=== PATIENT | female | born 1990 | race African-American/Black ===

== ENCOUNTER 2019-02-07 00:36 | Inpatient (IN) | payer MEDICAID ==
[2019-02-07] MEDS ORDERED: MISOPROSTOL 0.2 MG TABLET ONE (01:10)
[2019-02-07] MEDS ORDERED: OXYTOCIN 10 UNIT/ML VIAL ONE ×2 (01:10→11:52)
[2019-02-07] MEDS ORDERED: LIDOCAINE 1% INJ-PF (10 MG/ML) 30 ML SDV ONE (01:10)
[2019-02-07] MEDS ORDERED: OXYTOCIN/NORMAL SALINE 0 UNIT/0 ML RTUINJ ONE (01:11)
[2019-02-07 01:15] LABS: APPEARANCE,URINE CLOUDY; BILIRUBIN,URINE NEGATIVE (NEGATIVE); COLOR,URINE YELLOW; GLUCOSE, URINE NEGATIVE (NEGATIVE); KETONES,URINE NEGATIVE (NEGATIVE); LEUKOCYTE ESTERASE,URINE MODERATE (NEGATIVE); NITRITE,URINE NEGATIVE (NEGATIVE); PROTEIN,URINE 100 mg/dL (NEGATIVE); URINE SPECIFIC GRAVITY 1.016; UROBILINOGEN,URINE NEGATIVE mg/dL (<2.0)
[2019-02-07] MEDS ORDERED: RINGERS SOLUTION,LACTATED 1,000 ML IV ONE (02:00)
[2019-02-07 02:05] LABS: ABSOLUTE EOSINOPHILS # (AUTO) 0.3 10^3/uL (0.0-0.6); ABSOLUTE LYMPHOCYTES (AUTO) 3.4 10^3/uL (0.5-4.7); ABSOLUTE MONOCYTES (AUTO) 0.6 10^3/uL (0.1-1.4); ABSOLUTE NEUT (AUTO) 7.2 10^3/uL (1.7-8.2); BASOPHILS % (AUTO) 0.3 % (0-2); EOSINOPHILS % (AUTO) 2.2 % (0-6); HEMATOCRIT 34.4 % (36.0-47.0); HEMOGLOBIN 11.4 g/dL (12.0-15.5); LYMPHOCYTES % (AUTO) 29.3 % (13-45); MEAN CORPUSCULAR HEMOGLOBIN 28.9 pg (27.0-33.4); MEAN CORPUSCULAR HGB CONC 33.1 g/dL (32.0-36.0); MEAN CORPUSCULAR VOLUME 87 fl (80-97); MONOCYTES % (AUTO) 5.6 % (3-13); PLATELET COUNT 213 10^3/uL (150-450); RED BLOOD COUNT 3.94 10^6/uL (3.72-5.28); RED CELL DISTRIBUTION WIDTH 13.8 % (11.5-14.0); SEGMENTED NEUTROPHILS % (AUTO) 62.6 % (42-78); TOTAL CELLS COUNTED % (AUTO) 100 %; WHITE BLOOD COUNT 11.4 10^3/uL (4.0-10.5)
[2019-02-07] MEDS ORDERED: OXYTOCIN/NORMAL SALINE 20 UNIT/1,000 ML RTUINJ IV PRN ×2 (02:18→12:36)
--- NOTE | 2019-02-07 06:14 | Admission Physical ---
Datetime Report Generated by CPN: 02/07/2019 06:14 CURRENT ADMISSION Chief Complaint: Uterine Contractions; Suspected Ruptured Membranes Indication for Induction: PROM Admit Impression : Term, Intrauterine ; No Active Labor; Ruptured Membranes; Induction of Labor Admit Plan: Admit to Unit; Initiate Labor Induction Protocol ALLERGIES Medication Allergies: Yes Medication Allergies: Penicillins/SV/Anaphylaxis (08/09/2016) Latex: No Latex Allergies OBSTETRICAL HISTORY EDC: 02/14/2019 00:00 : 3 Para: 2 Term: 2 : 0 SAB: 0 IAB: 0 Livin Gestational Diabetes: No Rh Sensitization: No Incompetent Cervix: No RAY: No Infertility: No ART Treatment: No IUGR: No Hx Previous C/S: No Macrosomia: No Hx Loss/Stillborn: No PIH: No Hx : No Placenta Previa/Abruption: No Depression/PP Depression: No PTL/PROM: No Post Hemorrhage: No Current Procedures: Ultrasound; NST Obstetrical History Comments: G1- 2010 Full term, Girl, [facility] G2- 2015- Full term, Boy, [facility] SEE RECORDS Alcohol: No Marijuana : No Cocaine: No Other Illicit Drugs: No Cigarettes: Smoker, Current Status Unknown. 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 Heart Disease: No Hosp/Surgery: Yes Autoimmune Disorder: No Anesthetic Complications: No Kidney Disease: No Abnormal Pap Smear: No Neuro/Epilepsy: No Psychiatric Disorders: No Other Medical Diseases: No Hepatitis/Liver Disease: No Significant Family History: No Varicosities/Phlebitis: No Trauma/Violence : No Thyroid Dysfunction: No Medical History Comments: x2, chronic history of MRSA INFECTIOUS HISTORY Gonorrhea: No Genital Herpes: No Chlamydia: No Syphilis: No Hepatitis: No HIV/AIDS Exposure: No Rash or Viral Illness: No HPV: No PHYSICAL EXAM General: Normal HEENT: Normal Neurologic: Normal Thyroid: Deferred Heart: Normal Lungs: Normal Breast: Deferred Back: Normal Abdomen: Normal Genitourinary Exam: Normal Extremities: Normal DTRs: Normal Pelvic Type: Adequate Vital Signs: Reviewed VAGINAL EXAM Dilatation: 1 Effacement: 50 Station: -2 Contraction Comments: irreg MEMBRANES Membranes: Ruptured Amniotic Fluid Color: Clear FETUS A EGA: 39.0 Monitoring: External US FHR- Baseline: 125 Variability: Moderate 6-25bpm Accelerations: 15X15 Decelerations: None FHR Category: Category I Presentation: Vertex Admit Comment: 28yo at 39+0ega presents with SROM at 1215 with clear fluid. She was late to care at 20wks. Rh negative. H/o MRSA - swab done on admission. She reports that she desires BTL for contraception pp. GBS negative. Will admit to labor and delivery. Begin pitocin for IOL due to PROM. pelvis proven to 8#1oz. PLANS FOR LABOR AND DELIVERY Labor and Delivery: None Pain Management: Epidural Feeding Preference: Formula Benefit of Breast Feed Discussed: Yes Circumcision: Yes INFORMED CONSENT Informed Consent Obtained: Vaginal Delivery; Induction of Labor; Risks, Benefits and Alternatives Discussed Signature: with User ID: [email or web address]
[2019-02-07 07:39] LABS: URINE AMPHETAMINES SCREEN NEGATIVE; URINE BARBITURATES SCREEN NEGATIVE; URINE BENZODIAZEPINES SCREEN NEGATIVE; URINE COCAINE SCREEN NEGATIVE; URINE MARIJUANA (THC) SCREEN NEGATIVE; URINE METHADONE SCREEN NEGATIVE; URINE PHENCYCLIDINE SCREEN NEGATIVE
[2019-02-07] MEDS ORDERED: CITRIC ACID/SODIUM CITRATE ORAL SOLN 15 ML UDCUP ONE (10:34)
[2019-02-07] MEDS: RINGERS SOLUTION,LACTATED 1,000 ML IV PRN ×2 (10:57→15:21)
[2019-02-07] MEDS ORDERED: CEFAZOLIN 2 GM/D5W RTU 2 GM/50 ML RTUPB IV ONE (11:11)
[2019-02-07] MEDS ORDERED: EPHEDRINE SULFATE INJ 50 MG/1 ML AMPULE ONE (11:52)
[2019-02-07] MEDS ORDERED: FENTANYL CITRATE INJ/PF 100 MCG/2 ML AMPUL ONE (11:52)
[2019-02-07] MEDS ORDERED: MIDAZOLAM 2 MG/2 ML INJ ONE (11:52)
[2019-02-07] MEDS ORDERED: MEPERIDINE HCL/PF INJ 25 MG/1 ML DISP.SYRIN IV PRN (12:32)
[2019-02-07] MEDS ORDERED: PROMETHAZINE HCL INJ 25 MG/1 ML VIAL IV PRN ×3 (12:32→12:36)
[2019-02-07] MEDS ORDERED: DIPHENHYDRAMINE HCL 50 MG/ML VIAL IV PRN (12:32)
[2019-02-07] MEDS ORDERED: FENTANYL CITRATE INJ/PF 100 MCG/2 ML AMPUL IV PRN ×3 (12:32)
[2019-02-07] MEDS ORDERED: OXYCODONE-ACETAMINOPHEN 5-325 MG TABLET PO PRN (12:36)
[2019-02-07] MEDS ORDERED: MEASLES,MUMPS&RUBELLA VACC/PF 0.5 ML VIAL SUBCUT PRN (12:36)
[2019-02-07] MEDS ORDERED: ACETAMINOPHEN 325 MG TABLET PO PRN (12:36)
[2019-02-07] MEDS ORDERED: MORPHINE SULFATE 10 MG/ML INJ IM PRN (12:36)
[2019-02-07] MEDS ORDERED: SIMETHICONE 80 MG TAB.CHEW PO PRN (12:36)
[2019-02-07] MEDS ORDERED: DIPH/PERTUSS(ACELL)/TETANUS VAC/PF 0.5 ML SYR (>=10YO) IM PRN (12:36)
[2019-02-07] MEDS ORDERED: ACETAMINOPHEN 1,000 MG/100 ML RTUPB IV PRN (12:36)
--- NOTE | 2019-02-07 13:23 | OPERATIVE REPORT E ---
Operative Report NAME: BALJIT WHITLEY : 1990 AGE: 28Y DATE OF SURGERY: 02/07/2019 ROOM: LR200 PREOPERATIVE DIAGNOSIS: Intrauterine at 39 weeks, rupture of membranes. Prior history of *------* and desire for sterilization. POSTOPERATIVE DIAGNOSIS: Intrauterine at 39 weeks, rupture of membranes. Prior history of *------* and desire for sterilization. OPERATION: Primary low transverse C section, delivery of a viable male, of 9 and 9, weighing 8 pounds. SURGEON: Hattie BRAVO M.D. ESTIMATED BLOOD LOSS: Less than 800 mL. TISSUE REMOVED OR ALTERED: Placenta PROCEDURE: The patient was placed in the supine position, rolled on the right side, prepped and draped in sterile fashion. Pfannenstiel was made. The incision was extended through the subcutaneous tissue to fascia. Fascia sharply divided. Rectus muscle was sharply divided. Parietal peritoneum was entered with sharp and blunt dissection. The uterus was nicked in the midline, extended bilaterally. The infant was then delivered through the uterine abdominal incision. Nose and mouth suctioned with bulb syringe. Cord was clamped. The infant was passed from the table. Placenta was manually extracted. Uterus closed in 2 layers of running 0-Vicryl first a running stitch and a second Lembert stitch imbricating the first layer. A small amount of bleeding was noted in the midportion was controlled with a [id number] suture of 0 Vicryl. Hemostasis was noted. The right fallopian tube was then banded in the mid portion, creating a good knuckle of tissue. This was repeated on the left. Tube was identified prior to and after banding. The fascia was then closed with 0-Vicryl. Subcutaneous was closed with interrupted 0-Vicryl and the skin was closed with subcutaneous absorbable ricky. She tolerated well and was taken to recovery in good condition. Urine remained clear throughout the procedure. Infant went to nursery. DICTATING PHYSICIAN: Hattie BRAVO M.D. [id number] PHY#: [id number] ID: [id number] JOB#: [id number] ACCT: [id number] cc:Hattie BRAVO M.D. >
[2019-02-07] MEDS ORDERED: MORPHINE SULFATE 10 MG/ML INJ ONE (13:27)
[2019-02-07] MEDS: MORPHINE SULFATE 10 MG/ML INJ IV PRN ×2 (13:31→14:03)
[2019-02-07] MEDS: CEFAZOLIN 2 GM/D5W RTU 2 GM/50 ML RTUPB IV SCH ×3 (15:09→23:43)
[2019-02-07] MEDS: KETOROLAC TROMETHAMINE INJ/PF 30 MG/1 ML SDV IV SCH ×2 (15:15→23:43)
[2019-02-07] MEDS: OXYCODONE-ACETAMINOPHEN 5-325 MG TABLET PO PRN (15:17)
[2019-02-07] MEDS ORDERED: METOCLOPRAMIDE HCL INJ/PF 10 MG/2 ML SDV ONE (16:11)
[2019-02-07] MEDS ORDERED: DEXAMETHASONE SOD PHOSPHATE INJ 4 MG/1 ML VIAL ONE (16:11)
[2019-02-07] MEDS ORDERED: KETOROLAC TROMETHAMINE 60 MG/2 ML SDV ONE (16:11)
[2019-02-07] MEDS ORDERED: ONDANSETRON HCL INJ/PF 4 MG/2 ML SDV ONE (16:11)
--- NOTE | 2019-02-07 16:11 | Delivery Summary ---
Del Sum A-C Datetime Report Generated by CPN: 02/07/2019 16:11 DELIVERY PERSONNEL DELIVERY PERSONNEL: [id number] Delivery Doctor:: Shaun Banerjee MD Anesthesiologist:: Mattie Garcia MD Labor and Delivery Nurse:: Anushka Sosa RN Information Security Director:: Anushka Sosa RN Nursery Nurse:: Rachel Whiteside Char Filter Tank Tender/MAGAZINE GRINDER LOADER: ST Lisette Char Filter Tank Tender/MAGAZINE GRINDER LOADER: Gabrielle Dunbar, SAMPLE DISTRIBUTOR Additional Personnel: : Cheyenne Marks RN MATERNAL INFORMATION Delivery Anesthesia: Spinal Medications After Delivery: Pitocin Bolus-Please Comment; Pitocin Drip 20 Units/1000ml NSS Maternal Complications: Premature Rupture of Membranes; Other Other Maternal Complications: prior shoulder dystocia LABOR SUMMARY EDC: 02/14/2019 00:00 LABOR INFORMATION Reason for Induction: Not Applicable Group B Beta Strep: negative MEMBRANES Membranes Rupture Method: Spontaneous VAGINAL DELIVERY Episiotomy: None Laceration #1: None Laceration Extension #1: N/A CSECTION DELIVERY Primary Indication: Other Other Primary Indication: Breech CSection Incision: Lower Uterine Transverse Sterilization Procedure: Ring and Clip BABY A INFORMATION Delivery Date/Time: 02/07/2019 12:14 Method of Delivery: Born in Route : No : N/A SCORES BABY A Heart Rate 1 min: >100 bpm Resp Effort 1 min: Good Cry Reflex Irritability 1 min: Cough or Sneeze or Pulls Away Muscle Tone 1 min: Active Motion Color 1 min: Body [place], Extremities Blue Resuscitation Effort 1 min: Tactile Stimulation SCORE 1 MIN: 9 Heart Rate 5 min: >100 bpm Resp Effort 5 min: Good Cry Reflex Irritability 5 min: Cough or Sneeze or Pulls Away Muscle Tone 5 min: Active Motion Color 5 min: Body [place], Extremities Blue SCORE 5 MIN: 9 WEIGHT/LENGTH BABY A Birthweight (gm): 3630 Infant Weight (lb): 8 Infant Weight (oz): 0 Length (in): 19.50 Infant Length (cm): 49.53 ASSESSMENT BABY A Complications: None Physical Findings at Delivery: Within Normal Limits Transferred To: [facility] SIGNATURES Signature: with User ID: [email or web address]
[2019-02-07] MEDS: DOCUSATE SODIUM 100 MG CAPSULE PO SCH (18:44)
[2019-02-08] MEDS: KETOROLAC TROMETHAMINE INJ/PF 30 MG/1 ML SDV IV SCH (06:00)
[2019-02-08] MEDS: CEFAZOLIN 2 GM/D5W RTU 2 GM/50 ML RTUPB IV SCH ×4 (06:00→23:40)
[2019-02-08 07:09] LABS: HEMATOCRIT 29.3 % (36.0-47.0); HEMOGLOBIN 9.7 g/dL (12.0-15.5); MEAN CORPUSCULAR HEMOGLOBIN 29.3 pg (27.0-33.4); MEAN CORPUSCULAR VOLUME 89 fl (80-97); PLATELET COUNT 203 10^3/uL (150-450); RED CELL DISTRIBUTION WIDTH 13.9 % (11.5-14.0); WHITE BLOOD COUNT 14.6 10^3/uL (4.0-10.5)
[2019-02-08] MEDS: OXYCODONE-ACETAMINOPHEN 5-325 MG TABLET PO PRN ×3 (07:47→22:33)
--- NOTE | 2019-02-08 09:16 | PDOC PROGRESS REPORT ---
Subjective-OB Progress Note for:: 02/08/19 - POD #1, doing well, no complaints, Hx of MRSA, swab pending, pt plans to bottlefeed, RH negative. Physical Exam (OB) Vital Signs: Temp Pulse Resp BP Pulse Ox 98.5 F 69 18 120/63 100 02/08/19 04:18 02/08/19 04:18 02/08/19 04:18 02/08/19 04:18 02/08/19 04:18 Intake & Output 02/07/19 02/08/19 02/09/19 06:59 06:59 06:59 Intake Total 2250 50 Output Total 1850 Balance 400 50 Weight 129.6 kg - General General Appearance: Appears well, Alert In distress: None - PIH/Pre-Eclampsia DTR's: 1 + Clonus: Negative Headache: Absent Epigastric Pain: No Visual Changes: No - Dressing Removed: Yes Incision: Dressing Closure Type: Surgical Glue - Lochia Lochia Amount: Small 10-25 ml Lochia Color: Serosa/Brown - Abdomen Description: Soft Hernia Present: No Fundal Description: Firm, Midline Fundal Height: u/u - u/2 - Respiratory Respiratory Status: No respiratory distress Breath sounds: Clear - Cardiovascular Rhythm: Regular Heart Sounds: Normal auscultation - Abdominal Inspection: Normal Distension: No distension Tenderness: Nontender - Genitourinary Genitourinary Note: santizo cath in place - Extremities Upper extremity: Normal inspection Lower extremities: Normal inspection - Neurological Cognition: Normal Orientation: AAOx4 - Psychological Associated symptoms: Normal affect, Normal mood - Skin Skin Temperature: Warm Skin Moisture: Dry Objective-Diagnostic Laboratory: 02/08/19 06:34 02/08/19 02/08/19 06:34 06:34 WBC 14.6 H RBC 3.30 L Hgb 9.7 L Hct 29.3 L MCV 89 MCH 29.3 MCHC 33.0 RDW 13.9 Plt Count 203 Blood Type AB NEGATIVE Assessment and Plan(PN) - Assessment and Plan (1) S/P primary low transverse Is this a current diagnosis for this admission?: Yes (2) Obesity affecting Qualifiers: Trimester: third trimester Qualified Code(s): O99.213 - Obesity complicating , third trimester Is this a current diagnosis for this admission?: Yes (3) Premature rupture of membranes Qualifiers: PROM onset of labor timing: onset of labor within 24 hours of rupture Is this a current diagnosis for this admission?: Yes (4) Tobacco abuse disorder Is this a current diagnosis for this admission?: Yes - Time Spent with Patient Time with patient: Less than 15 minutes Medications reviewed and adjusted accordingly: Yes - Disposition Anticipated Discharge: Home Within: within 48 hours
[2019-02-08] MEDS: DOCUSATE SODIUM 100 MG CAPSULE PO SCH ×2 (10:18→17:22)
[2019-02-08] MEDS: PRENATAL VITAMIN W DHA CAPSULE PO SCH (10:18)
[2019-02-08] MEDS: FERROUS SULFATE 325 MG TABLET PO SCH (10:18)
[2019-02-08] MEDS: IBUPROFEN 800 MG TABLET PO SCH ×2 (17:21→23:41)
[2019-02-09] MEDS: CEFAZOLIN 2 GM/D5W RTU 2 GM/50 ML RTUPB IV SCH (06:34)
[2019-02-09] MEDS: IBUPROFEN 800 MG TABLET PO SCH ×2 (06:34→14:01)
[2019-02-09] MEDS: DOCUSATE SODIUM 100 MG CAPSULE PO SCH (09:04)
[2019-02-09] MEDS: OXYCODONE-ACETAMINOPHEN 5-325 MG TABLET PO PRN (09:04)
[2019-02-09] MEDS: FERROUS SULFATE 325 MG TABLET PO SCH (09:04)
[2019-02-09] MEDS: PRENATAL VITAMIN W DHA CAPSULE PO SCH (09:04)
--- NOTE | 2019-02-09 10:02 | PDOC DISCHARGE SUMMARY ---
Final Diagnosis Discharge Date: 02/09/19 - POD #2, doing well, desires to go home today, AB negative, bottlefeeding - Final Diagnosis (1) S/P primary low transverse Is this a current diagnosis for this admission?: Yes (2) Obesity affecting Is this a current diagnosis for this admission?: Yes (3) Premature rupture of membranes Is this a current diagnosis for this admission?: Yes (4) Tobacco abuse disorder Is this a current diagnosis for this admission?: Yes Discharge Data - Discharge Medication Prescriptions: Ferrous Sulfate [Feosol 325 mg Tablet] 325 mg PO DAILY #30 tablet Ibuprofen [Motrin 800 mg Tablet] 800 mg PO Q6 #60 tablet Oxycodone HCl/Acetaminophen [Percocet 5-325 mg Tablet] 1 tab PO Q4HP PRN #30 tablet PRN Reason: Pain Scale Of 3 Home Medications: No122/Iron/Folic Acid [ Multi Tablet] 1 tab PO DAILY 08/09/16 Ferrous Sulfate [Feosol 325 mg Tablet] 325 mg PO DAILY #30 tablet 02/09/19 Ibuprofen [Motrin 800 mg Tablet] 800 mg PO Q6 #60 tablet 02/09/19 Oxycodone HCl/Acetaminophen [Percocet 5-325 mg Tablet] 1 tab PO Q4HP PRN #30 tablet 02/09/19 Reason(s) for Admission: Ceasarean Section-Repeat Procedures: Ultrasound Intrapartum Procedure(s): : Low Cervical, Transverse - Diagnosis Test Laboratory: Temp Pulse Resp BP Pulse Ox 98.6 F 84 18 116/62 98 02/09/19 07:21 02/09/19 07:21 02/09/19 07:21 02/09/19 07:21 02/09/19 08:50 02/07/19 02/07/19 02/07/19 00:45 01:50 07:00 RBC 3.94 Hgb 11.4 L Hct 34.4 L Urine Opiates Screen Cancelled NEGATIVE 02/08/19 06:34 RBC 3.30 L Hgb 9.7 L Hct 29.3 L Urine Opiates Screen - Discharge information/Instructions Discharge Activity: Activity As Tolerated, No Driving, No Lifting Over 10 Pounds, Pelvic Rest Discharge Diet: As Tolerated, Regular Disposition: HOME, SELF-CARE Follow up with: [facility] in: 1, Weeks
[2019-02-09 13:07] VITALS: BP 137/71
== END 2019-02-09 15:22 | disposition home or self-care (01) | DRG 785 ==
LOC: LC 00:36 → LR 01:35 → 2S 14:35
PROVIDERS: ADMIT Obstetrics & Gynecology Gynecology; ATTEND Obstetrics & Gynecology Gynecology
PROC: 10D00Z1 Extraction of Products of Conception, Low, Open Approach (ICD-10-PCS; principal; 2019-02-07)
PROC: 0UL70CZ Occlusion of Bilateral Fallopian Tubes with Extraluminal Device, Open Approach (ICD-10-PCS; 2019-02-07)
PROC: 3E0234Z Introduction of Serum, Toxoid and Vaccine into Muscle, Percutaneous Approach (ICD-10-PCS; 2019-02-09)
DX: O42.02 Full-term premature rupture of membranes, onset of labor within 24 hours of rupture (principal); O99.214 Obesity complicating childbirth; O32.1XX0 Maternal care for breech presentation, not applicable or unspecified; Z86.14 Personal history of Methicillin resistant Staphylococcus aureus infection; Z3A.39 39 weeks gestation of pregnancy; Z37.0 Single live birth; Z30.2 Encounter for sterilization
CPT/HCPCS: 1961; 36415; 80307; 81005; 84112; 85025; 85027; 85461; 86592; 86850; 86900; 86901; 87070; 94760; 94799; J0690; J1100; J1885; J2250; J2270; J2405; J2590; J2765; J2790; J3010; J3490; J7120